=== PATIENT | male | born 1975 | race Caucasian/White ===

== ENCOUNTER 2017-04-05 21:44 | Emergency (ER) | payer BC ==
[~2017-04-05] VITALS: Ht 182.9 cm; Wt 95.0 kg
[2017-04-05] MEDS ORDERED: DIPHENHYDRAMINE 50MG/ML VIAL IV ONE (23:15)
[2017-04-05] MEDS ORDERED: EPINEPHRINE 1:1000 1 MG/ML AMP INJ ONE (23:15)
[2017-04-05] MEDS ORDERED: METHYLPREDNISOLONE SOD SUCC 125 MG/2 ML VIAL IV ONE (23:15)
[2017-04-06 01:24] VITALS: BP 109/59
== END 2017-04-06 01:26 | disposition home or self-care (01) ==
LOC: ER 22:29
DX: T78.3XXA Angioneurotic edema, initial encounter (principal); T39.315A Adverse effect of propionic acid derivatives, initial encounter; Y92.092 Bedroom in other non-institutional residence as the place of occurrence of the external cause
CPT/HCPCS: 96374; 96375; 99284; J0171; J1200; J2930; Z7610